=== PATIENT | male | born 1950 | race Caucasian/White ===

== ENCOUNTER 2019-01-12 09:11 | Outpatient (CLI) | payer MEDICARE, OTHER | END 2019-01-12 23:59 | disposition home or self-care (01) | LOC: RAD 09:11 | PROVIDERS: ATTEND Homeopath | DX: C61 Malignant neoplasm of prostate (principal) | CPT/HCPCS: 36573; C1751 ==

== ENCOUNTER 2019-01-23 12:08 | Emergency (ER) | payer MEDICARE, OTHER ==
[~2019-01-23] VITALS: Ht 172.7 cm; Wt 63.6 kg
[2019-01-23 12:15] VITALS: BP 122/67
== END 2019-01-23 14:56 | disposition home or self-care (01) ==
LOC: ED 14:50
DX: T82.898A Other specified complication of vascular prosthetic devices, implants and grafts, initial encounter (principal); C61 Malignant neoplasm of prostate
CPT/HCPCS: 99284; J2997